=== PATIENT | female | born 1960 | race Caucasian/White ===

== ENCOUNTER 2019-07-24 17:06 | Emergency (ER) | payer MEDICARE, SELFPAY ==
--- NOTE | ~2019-07-24 | XR_ITS ---
EXAMINATION: XR chest 2V EXAM DATE: 07/24/2019 17:50 INDICATION: Epigastric, left-sided chest pain. TECHNIQUE: Frontal and lateral projections of the chest obtained and reviewed. Comparison is made to prior examination from 05/07/2018. FINDINGS: There is moderate chronic hyperinflation. There are cholecystectomy clips. Small amount of chronic biapical scarring suspected. The lungs are otherwise clear. There are no pleural effusions. The cardiomediastinal silhouette is within normal limits. There is no pneumothorax suspected. The bones and soft tissues are unremarkable. IMPRESSION: 1. No acute cardiopulmonary findings. 2. Hyperinflation. Reviewed, dictated and finalized at location A.
--- NOTE | 2019-07-24 17:08 | ECG_ITS ---
Measurements Intervals [place] Rate: 74 P: 65 SD: 125 QRS: 64 QRSD: 79 T: 62 QT: 355 QTc: 396 Interpretive Statements SINUS RHYTHM BASELINE ARTIFACT- I, II, AVR, AVL, V5 NORMAL ECG Electronically Signed On 07-25-2019 7:06:29 CDT by Keegan Rankin D.O.
[2019-07-24 17:13] VITALS: BP 153/84; PULSE 76; RESP 18; TEMP 36.7
[2019-07-24 17:26] LABS: Basophils Percent Auto 0.4 % (0.2-1.2); Eosinophils Absolute Auto 0.2 K/mm3 (0-0.3); Eosinophils Percent Auto 2.1 % (0-4.4); Hematocrit 42.7 % (37.0-47.0); Hemoglobin 14.2 g/dL (12.0-15.0); Immature Granulocyte Absolute 0.02 K/mm3 (0.00-0.031); Immature Granulocyte Percent A 0.3 % (0-0.5); Lymphocytes Absolute Auto 2.87 K/mm3 (0.9-3.2); Mean Corpuscular HGB Conc 33.3 g/dl (32-36); Mean Corpuscular Hemoglobin 29.8 pg (26-34); Mean Corpuscular Volume 89.5 fl (80-100); Mean Platelet Volume 10.2 fl (7.4-10.4); Monocytes Absolute Auto 0.6 K/mm3 (0.1-0.6); Monocytes Percent Auto 8.9 % (2.6-8.5); Neutrophils Absolute Auto 3.5 K/mm3 (1.3-6.7); Neutrophils Percent Auto 48.3 % (45.5-73.1); Platelet Count Result 307 k/mm3 (150-375); Red Blood Count 4.77 M/mm3 (4.2-5.4); Red Cell Distribution Width 12.6 % (11.5-14.5); White Blood Count 7.2 K/mm3 (4.5-10.0)
[2019-07-24] MEDS: ASPIRIN 81 MG CHEWABLE TABLET 324 MG PO (17:29)
[2019-07-24 17:36] LABS: INR 0.9; Prothrombin Time 11.6 Seconds (11.1-14.7)
[2019-07-24 17:37] LABS: Partial Thromboplastin Time 25.4 SECONDS (22.3-36.8)
[2019-07-24 17:38] LABS: Blood Urea Nitrogen 20 mg/dL (7-17); Carbon Dioxide 25 mmol/L (22-30); Chloride 106 mmol/L (98-107); Estimated CRCL calculation 61 ml/min; Estimated Glomerular Filt Rate > 60; Glucose 85 mg/dL (65-105); Potassium 3.8 mmol/L (3.4-5.0); Sodium 139 mmol/L (137-145)
--- NOTE | 2019-07-24 17:55 | ED.GENADULT ---
HPI - General Adult General Chief complaint: Extremity Injury, Upper <dAam Alvarez MD - Last Filed: 07/24/19 18:00> Stated complaint: Pain radiating down arm and neck <Adam Alvarez MD - Last Filed: 07/24/19 18:00> Time Seen by Provider: 07/24/19 17:12 <Adam Alvarez MD - Last Filed: 07/24/19 18:00> History of Present Illness HPI narrative: Patient is a 58-year-old female who presents the ER with left-sided neck and shoulder pain radiating into the jaw. One episode yesterday and then 2 separate episodes today. Each episode lasts for 1 minute or less. It will briefly take her breath away. No exertional dyspnea or chest pain. No history of coronary disease. She has no known injury to her head or neck. No known muscle spasms. No reproducible symptoms with turning of her head or flexing/extending of the head and neck. Has found no aggravating or alleviating factors. <Adam Alvarez MD - Last Filed: 07/24/19 18:00> Related Data Home medications: Home Medications Medication Instructions Recorded Confirmed levothyroxine [Synthroid] See Rx Instructions .ROUTE .COMPLEX 07/24/19 07/24/19 <Adam Alvarez MD - Last Filed: 07/24/19 18:00> Allergies/adverse reactions: Allergies Allergy/AdvReac Type Severity Reaction Status Date / Time diphenhydramine Allergy Unknown HYPERACTIVE, Verified 05/07/18 14:53 PANIC ATTACKS fish oil Allergy Unknown SWELLING, Verified 05/07/18 14:53 THROAT CLOSES UP Penicillins Allergy Unknown Verified 05/06/16 08:46 <Adam Alvarez MD - Last Filed: 07/24/19 18:00> Review of Systems Review of Systems: All systems reviewed & are unremarkable except as noted in HPI and below <Adam Alvarez MD - Last Filed: 07/24/19 18:00> Constitutional: Constitutional: Denies chills, Denies fever(s) and Denies weakness <Adam Alvarez MD - Last Filed: 07/24/19 18:00> ENT: Denies nasal congestion and Denies sore throat <Adam Alvarez MD - Last Filed: 07/24/19 18:00> Cardiovascular: Cardiovascular: Denies chest pain, Denies rapid heart rate and Reports radiating jaw, neck or arm pain <Adam Alvarez MD - Last Filed: 07/24/19 18:00> Respiratory: Respiratory: Denies chest congestion, Denies cough, Reports dyspnea and Denies wheezing <Adam Alvarez MD - Last Filed: 07/24/19 18:00> Gastrointestinal: Gastrointestinal: Denies abdominal pain, Denies nausea and Denies vomiting <Adam Alvarez MD - Last Filed: 07/24/19 18:00> PMFSH Past Medical History Medical History: Medical History (Updated 07/24/19 @ 21:14 by Angy Cortes MD) Anxiety Depression Fibromyalgia Hypothyroidism <Adam Alvarez MD - Last Filed: 07/24/19 18:00> Surgical History Surgical History: Surgical History (Updated 07/24/19 @ 17:58 by Adam Alvarez MD) H/O thyroidectomy H/O tubal ligation History of cholecystectomy <Adam Alvarez MD - Last Filed: 07/24/19 18:00> Family History Family History: Family History (Updated 09/06/16 @ 13:35 by DOCTOR UNKNOWN) Mother Carcinoma of colon Other Family history of coronary artery disease <Adam Alvarez MD - Last Filed: 07/24/19 18:00> Social History Social History: Social History Smoking status: Never smoker Alcohol intake: current <Adam Alvarez MD - Last Filed: 07/24/19 18:00> Exam Narrative: Exam Narrative: GENERAL: Well-appearing, well-nourished, and in no acute distress. HEAD: Normocephalic, atraumatic. ENT: Mucous membranes moist. NECK: Supple. Mild left paraspinal muscle tenderness near C5/6. No palpable spasm. Range of motion intact and painless. No midline tenderness. CHEST: Clear to auscultation. No respiratory distress. HEART: Regular rate and rhythm. Normal peripheral pulses. ABDOMEN: Soft, nontender, nondistended. EXTREMITIES: Normal range of motion. No edema. SKIN: Warm, dry, no rash.
[2019-07-24 18:13] LABS: Troponin I < 0.012 ng/mL (0.000-0.034)
[2019-07-24] MEDS: SODIUM CHLORIDE 0.9% IV 1,000 ML 999 ML (19:59)
[2019-07-24 20:00] VITALS: BP 121/78; PULSE 68; RESP 18; O2SAT 100
[2019-07-24 20:47] LABS: Troponin I < 0.012 ng/mL (0.000-0.034)
== END 2019-07-24 21:22 | disposition home or self-care (01) ==
PROVIDERS: Emergency Medicine; Emergency Provider Emergency Medicine; PCP Internal Medicine
DX: M54.2 Cervicalgia (principal); M79.7 Fibromyalgia; E89.0 Postprocedural hypothyroidism; M79.602 Pain in left arm
CPT/HCPCS: 36415; 71046; 80048; 84484; 85025; 85610; 85730; 93005; 96360; 99284; A9270; J7030

== ENCOUNTER 2022-08-05 13:09 | Emergency (ER) | payer MEDICARE, SELFPAY ==
--- NOTE | ~2022-08-05 | CT_ITS ---
EXAMINATION: CTA chest PE abdomen pel DATE: 08/05/2022 14:54 INDICATION: Epigastric abdominal pain. Shortness of breath. TECHNIQUE: Computed tomography angiography (CTA) of the chest was performed with 100 mL Omnipaque-350 intravenous contrast timed to evaluate the pulmonary arteries. Coronal maximum intensity projection 3D-reconstructions were created by the technologist. Computed tomography (CT) of the abdomen and pelv is was performed with intravenous contrast. Automated exposure control and iterative reconstruction t echnique were employed. The dose-length product was 720.49 mGy-cm. COMPARISON: CT abdomen and pelvis 05/07/2018, chest CT 01/01/2016 FINDINGS: CTA chest: There is chronic scarring at the lung apices. There is a stable 9 mm nodule in right upper lobe, likely benign. Calcified pulmonary nodules and calcified hilar lymph nodes are consistent with old granulomatous disease. There is mild dependent atelectasis bilaterally. No pleural effusion. The re are changes of thyroidectomy. The heart size is normal. No pericardial effusion. There is no pulmo nary embolus. There is mild thoracic spondylosis. CT abdomen and pelvis: There is a 5 mm cyst in the liver. There are changes of cholecystectomy. The s pleen, pancreas, and adrenal glands are normal. There are cysts in the kidneys measuring up to 2.2 cm on the left. There are no dilated loops of bowel. The appendix is normal. There are no pathologicall y enlarged lymph nodes. There is no free intraperitoneal fluid. There is mild lumbar spondylosis. IMPRESSION: 1. No pulmonary embolus. 2. No etiology for abdominal pain. Reviewed, dictated and finalized at location A.
[2022-08-05 13:12] VITALS: BP 142/82; PULSE 96; RESP 18; TEMP 36.9; O2SAT 100
--- NOTE | 2022-08-05 13:14 | ECG_ITS ---
Measurements Intervals [place] Rate: 92 P: 46 GA: 127 QRS: 55 QRSD: 90 T: 52 QT: 337 QTc: 418 Interpretive Statements SINUS RHYTHM BASELINE ARTIFACT- I, III, AVL NORMAL ECG COMPARED TO ECG 07/24/2019 17:17:10 NO SIGNIFICANT CHANGES Electronically Signed On 08-05-2022 13:26:00 CDT by Keegan Rankin D.O.
[2022-08-05 13:16] VITALS: BP 142/82; PULSE 96; RESP 16; TEMP 36.9; O2SAT 100
[2022-08-05 13:26] VITALS: O2SAT 100
[2022-08-05] MEDS: MAG HYDROX/ALUMINUM HYD/SIMETH 30 ML, PHENobarb/HYOSCY/ATROPINE/SCOP 32.4 MG, LIDOCAINE... PO (13:28)
[2022-08-05 13:38] LABS: Basophils Absolute Auto 0.02 K/mm3 (0.00-0.10); Basophils Percent Auto 0.4 % (0.0-1.0); Eosinophils Absolute Auto 0.08 K/mm3 (0.02-0.50); Eosinophils Percent Auto 1.6 % (1.0-6.0); Hematocrit 37.8 % (35.0-49.0); Hemoglobin 12.8 g/dL (12.0-15.0); Immature Granulocyte Absolute 0.01 K/mm3 (0.00-0.00); Immature Granulocyte Percent A 0.2 % (0.0-0.0); Lymphocytes Absolute Auto 1.61 K/mm3 (1.10-4.50); Lymphocytes Percent Auto 33.2 % (18.0-42.0); Mean Corpuscular HGB Conc 33.9 g/dL (32.0-36.0); Mean Corpuscular Hemoglobin 30.3 pg (27.0-31.0); Mean Corpuscular Volume 89.6 fL (78.0-102.0); Monocytes Absolute Auto 0.42 K/mm3 (0.10-0.90); Monocytes Percent Auto 8.7 % (2.0-11.0); Neutrophils Absolute Auto 2.7 K/mm3 (1.7-7.2); Neutrophils Percent Auto 55.9 % (50.0-70.0); Platelet Count Result 280 K/mm3 (150-420); Red Blood Count 4.22 M/mm3 (4.20-5.40); Red Cell Distribution Width 12.5 % (11.6-14.4); White Blood Count 4.9 K/mm3 (4.8-10.8)
[2022-08-05 13:54] LABS: D Dimer 0.64 mg/L (0.19-0.50); Partial Thromboplastin Time 24.2 SEC (23.90-30.70); Prothrombin Time 10.8 Seconds (9.50-12.10)
[2022-08-05 14:00] LABS: Alanine Aminotransferase 42 U/L (14-59); Albumin Level 3.5 g/dL (3.4-5.0); Alkaline Phosphatase 93 U/L (46-116); Anion Gap 5 mmol/L (8-16); Aspartate Amino Transferase 24 U/L (15-37); Bilirubin,Total 0.5 mg/dL (0.00-1.00); Blood Urea Nitrogen 12 mg/dL (7-18); Calcium 9.3 mg/dL (8.5-10.1); Carbon Dioxide 30 mmol/L (21-32); Chloride 106 mmol/L (98-108); Estimated CRCL calculation 53 ml/min; Estimated Glomerular Filt Rate 55; Glucose 125 mg/dL (70-99); Lipase 49 U/L (16-77); NT Pro B Type Natriuretic Pept 40 pg/mL (0-125); Osmolality Calculated 292 mOsm/kg (285-295); Potassium 3.6 mmol/L (3.5-5.1); Sodium 141 mmol/L (136-145); Total Protein 7.1 g/dL (6.4-8.2)
[2022-08-05 14:01] LABS: Troponin I < 4.0 ng/L (0.00-60.4)
[2022-08-05] MEDS: KETOROLAC 30 MG/ML VIAL (*BKC) IV PUSH (14:09)
[2022-08-05] MEDS: SODIUM CHLORIDE 0.9% IV 1,000 ML 999 ML IV CONT (14:16)
--- NOTE | 2022-08-05 15:21 | ED.CHESTPAIN ---
HPI - Chest Pain General Chief Complaint: Chest Pain Stated Complaint: chest pain Time Seen by Provider: 08/05/22 13:15 Source: patient Mode of arrival: ambulatory Limitations: no limitations History of Present Illness HPI narrative: this is a 61-year-old female that presents with some chest discomfort some localizing to the epigastric area started few days ago has been off and on but more constant over the last day with some no nausea or vomiting no shortness of breath no diaphoresis no immediate family history of heart disease, does have a history of hypothyroidism. Currently there is some no flank pain no back pain no diaphoresis no fever chills no diarrhea constipation. complaint: chest pain Onset (ago): day(s) Timing of current episode: episodic Onset: during rest Pain location: epigastric Pain radiation: none Severity: moderate Pain scale (0-10): 6 Quality: burning Related Data Home Medications Medication Instructions Recorded Confirmed levothyroxine 150 mcg tablet 150 mcg PO DAILY 08/05/22 08/05/22 (Synthroid) Allergies Allergy/AdvReac Type Severity Reaction Status Date / Time diphenhydramine Allergy Unknown HYPERACTIVE, Verified 08/05/22 13:15 PANIC ATTACKS fish oil Allergy Unknown SWELLING, Verified 08/05/22 13:15 THROAT CLOSES UP Penicillins Allergy Unknown Seizure Verified 08/05/22 13:15 Review of Systems Review of Systems: All systems reviewed & are unremarkable except as noted in HPI and below PMFSH Past Medical History Medical History Anxiety Depression Fibromyalgia Hypothyroidism Surgical History Surgical History H/O thyroidectomy H/O tubal ligation History of cholecystectomy Family History Family History Mother Carcinoma of colon Other Family history of coronary artery disease Social History Social History Smoking status: Never smoker Alcohol intake: current Exam Const: General: cooperative and healthy appearing HENMT: Head: normal to inspection Face/Nose/Sinus: Normal external nose present Face and sinus: normal facial exam Mouth: Yes Normal oral and palatal mucosa present Eyes: General: appearance normal, both eyes and all related structures Neck: Neck: normal visual inspection, full ROM and no lymphadenopathy Chest: Chest palpation & inspection: normal inspection of the chest Resp: Effort & Inspection: normal respiratory effort Auscultation: clear to auscultation bilaterally Cardio: Jugular venous distension: no JVD Palpation: normal PMI Rate: regular rate Rhythm: regular rhythm GI: Inspection: normal to inspection GI Palp: Yes abdominal tenderness and Yes Tenderness to palpation present (GI) : General: Yes bimanual renal exam normal bilaterally Urinary Catheter: Urinary Catheter: patent and draining Back/Spine/Pelvis: Back: no CVA tenderness Skin: General skin exam: normal color and no rashes or lesions noted Neuro: General: oriented to person, oriented to place and oriented to time Extrem: General: normal to inspection, full ROM and capillary refill normal Psych: Appearance: grossly normal Mental Status: mental status grossly normal Speech and movement: Normal speech and movement present Course Course Emergency Course: EKG performed shows normal sinus rhythm with a rate of 92. The patient did receive a GI cocktail which offered minimal relief. Patient also received IV Toradol which did improve her pain level slightly. Patient had elevated D-dimer and CTA was performed, troponins were negative the rest of her laboratory profile was within normal limits. CTA was performed along with some abdomen CT and pelvis CT which showed no acute lung findings are intra-abdominal findings. The patrick
[2022-08-05] MEDS: PANTOPRAZOLE SODIUM IV 40 MG VIAL 80 MG IV PUSH (15:27)
[2022-08-05 15:48] VITALS: BP 106/63; PULSE 79; RESP 15; TEMP 36.7; O2SAT 99
== END 2022-08-05 15:48 | disposition home or self-care (01) ==
PROVIDERS: Emergency Provider Emergency Medicine; PCP Internal Medicine
DX: K21.9 Gastro-esophageal reflux disease without esophagitis (principal); R07.89 Other chest pain; E03.9 Hypothyroidism, unspecified
CPT/HCPCS: 36415; 71275; 74177; 80053; 83690; 83880; 84484; 85025; 85380; 85610; 85730; 93005; 96361; 96374; 96375; 99284; A9270; C9113; J1885; J7030; Q9967